=== PATIENT | female | born 1955 | race Caucasian/White ===

== ENCOUNTER 2017-04-05 17:11 | Emergency (ER) | payer OTHER ==
[~2017-04-05] VITALS: Ht 172.7 cm; Wt 71.6 kg
[~2017-04-05 17:11] MED LIST: ESTR0.62 VAGINAL; FLUO40CA PO
[2017-04-05 17:15] VITALS: BP 119/62; PULSE 89; RESP 16; TEMP 98.1; O2SAT 96
[2017-04-05] MEDS ORDERED: BUPR100CR PO (17:21)
--- NOTE | 2017-04-05 18:36 | PD ---
HPI Chief Complaint: Laceration/Skin Injury Time Seen by Provider: 18:00 Travel History International Travel<30 days: No Contact w/Intl Traveler<30days: No Traveled to known affect area: No History of Present Illness HPI 61-year-old female here for evaluation of laceration to right fifth digit. Patient reports she was cleaning dishes in her sink when a kitchen knife cut the finger prior to arrival. She cleansed the area and bandaged it. She reports normal sensation and full range of motion of the digit. Symptom severity is mild. No alleviating factors. PFSH Past Medical History Depression: Yes Diminished Hearing: No Immunizations Current: Yes Tetanus Vaccination: Unknown Influenza Vaccination: Yes ?: Not Menopausal: Yes Past Surgical History Surgical History: No Previous Surgery Social History Alcohol Use: No Tobacco Use: No Substance Use: No Allergies-Medications (Allergen,Severity, Reaction): Coded Allergies: No Known Allergies (Unverified Adverse Reaction, Unknown, 04/05/17) Reported Meds & Prescriptions Reported Meds & Active Scripts Active Reported Wellbutrin SR 12 HR (Bupropion HCl) 100 Mg Tab 100 Mg PO DAILY Review of Systems Except as stated in HPI: all other systems reviewed are Neg Physical Exam Narrative GENERAL: Well-nourished, well-developed patient. SKIN: Focused skin assessment warm/dry. HEAD: Normocephalic. EYES: No scleral icterus. No injection or drainage. NECK: Supple, trachea midline. No JVD or lymphadenopathy. MUSCULOSKELETAL: No cyanosis, or edema. 1 cm laceration to the right fifth digit volar aspect. No underlying tendon injury. Patient is able to flex and extend the digit against resistance. Brisk cap refill. Data Data Last Documented VS Vital Signs Date Time Temp Pulse Resp B/P (MAP) Pulse Ox O2 Delivery O2 Flow Rate FiO2 04/05/17 17:15 98.1 89 16 119/62 (81) 96 MDM Medical Decision Making Medical Screen Exam Complete: Yes Emergency Medical Condition: Yes Differential Diagnosis Finger laceration, tendon laceration, abrasion Narrative Course 61-year-old female here with a laceration to the right fifth digit caused by kitchen knife. The digit is neurovascular intact. No tendon injury visualized were suspected. Laceration repair performed. Patient tolerated procedure well. Procedures Procedure Narrative LACERATION LOCATION: Right fifth digit LENGTH: 1.5 cm NUMBER OF STITCHES/BLANCA: [4 ] REPAIR: The area of the laceration was prepped with Betadine and sterilely draped. Digital block performed with 1% lidocaine. The wound was copiously irrigated and explored without evidence of foreign body, tendon injury or neurovascular injury. The wound was closed using 3-0 Ethilon. This was a single layer repair. A sterile dressing was applied. The patient was advised to keep the dressing clean and dry. Patient tolerated the procedure well. Diagnosis Primary Impression: Finger laceration Qualified Codes: S61.214A - Laceration without foreign body of right ring finger without damage to nail, initial encounter Referrals: Primary Care Physician Additional Instructions: Do not submerge the wound in water. Sutures need to be removed in 7 days. wash the area daily with soap and water pack the area dry and apply clean dry dressing. Scripts Cephalexin (Keflex) 250 Mg Cap 250 MG PO Q6H for Infection for 5 Days, #20 CAP 0 Refills Prov: Fern Frias 04/05/17 Disposition: 01 DISCHARGE HOME Condition: Stable Fern Frias Apr 05, 2017 18:36
[2017-04-05] MEDS ORDERED: CEPH-459 PO (18:52)
[2017-04-16] MEDS ORDERED: FLUO20CA12 PO (16:32)
[2017-04-16] MEDS ORDERED: WELLTAB39 PO (16:32)
== END 2017-04-05 19:12 | disposition home or self-care (01) ==
LOC: PHEFT 17:11
DX: S61.216A Laceration without foreign body of right little finger without damage to nail, initial encounter (principal); W26.0XXA Contact with knife, initial encounter; Y93.G1 Activity, food preparation and clean up
CPT/HCPCS: 12001